=== PATIENT | male | born 1970 | race Caucasian/White ===

== ENCOUNTER 2019-08-03 16:17 | Emergency (ER) | payer BC ==
[2019-08-03] MEDS ORDERED: Propofol 200 MG/20 ML SDV IV ONE (16:18)
[2019-08-03] MEDS ORDERED: Sodium Chloride 0.9% 10 ML Syringe FLUSH PRN (16:40)
[2019-08-03] MEDS ORDERED: Sodium Chloride 0.9% 1,000 ML IV SCH (16:45)
--- NOTE | 2019-08-03 17:13 | EDM.PDOC ---
ED HPI GENERAL MEDICAL PROBLEM - General Chief Complaint: Cardiovascular Problem Stated Complaint: FAST HEARTBEAT Time Seen by Provider: 08/03/19 16:45 Source of Information: Reports: Patient History Limitations: Reports: No Limitations - History of Present Illness INITIAL COMMENTS - FREE TEXT/NARRATIVE: 48-year-old male with history of A. fib/flutter which began on 06/30/2019 who presents to the emergency department today as a transfer from the [facility] in [place] secondary to atrial flutter with rapid ventricular response and a rate in the 130s. He was sent here after the clinic provider had discussed the patient's case with the fruit buyer at [facility] in [place] and the fruit buyer had recommended that the patient have synchronized cardioversion. The patient reports that beginning on 07/29/2019 noted swelling in his feet and ankles and this seems to have gotten progressively worse. He has had no chest pain. He has had no shortness of breath. No dizziness or weakness. He presented to the [facility] in [place] today secondary to this feet and ankle swelling and was then noted to have a flutter with the rapid rate and he was sent over here. He should continue use to state that he has no associated symptoms with this. No nausea or vomiting. He has no pain. He rates his pain as a 0/10. He has been eating and drinking normally. He has not had anything to eat or drink for the past 3-4 hours. There are no other associated signs or symptoms. There are no other modifying factors. Onset: Other (Swelling began on 07/29/2019.) Duration: Getting Worse Location: Reports: Lower Extremity, Left, Lower Extremity, Right Quality: Reports: Other (No pain. Distal swelling.) Severity: Moderate Improves with: Reports: None Worsens with: Reports: None Context: Reports: Other Associated Symptoms: Reports: No Other Symptoms Treatments SENIOR COMMUNICATIONS SPECIALIST: Reports: Other (see below) (Nothing) - Related Data Allergies Allergy/AdvReac Type Severity Reaction Status Date / Time No Known Allergies Allergy Verified 09/28/16 09:05 Home Meds: Home Meds Albuterol [Proventil HFA] 2 puff INH Q4H PRN 09/27/16 [History] Albuterol [Ventolin HFA] 2 puff INH Q4H PRN 09/27/16 [History] Ibuprofen 200 mg PO ASDIRECTED PRN 09/27/16 [History] allopurinoL [Zyloprim] 300 mg PO DAILY PRN 09/27/16 [History] Acetaminophen/HYDROcodone [[place] 325-5 MG] 1 - 2 tab PO Q6H PRN #30 tab [Rx] Docusate Sodium [Colace] 100 mg PO BID #20 capsule 09/28/16 [Rx] Past Medical History Cardiovascular History: Reports: Afib Respiratory History: Reports: Asthma Musculoskeletal History: Reports: Gout - Infectious Disease History Infectious Disease History: Reports: Chicken Pox, Measles, Mumps - Past Surgical History Cardiovascular Surgical History: Reports: Other (See Below) (Cardioversion 2) GI Surgical History: Reports: Cholecystectomy, Hernia, Abdominal (2) Social & Family History - Tobacco Use Smoking Status *Q: Unknown Ever Smoked (Nonsmoker) - Caffeine Use Caffeine Use: Reports: Soda Other Caffeine Use: ONE CAN POP A DAY - Alcohol Use Alcohol Use History: Yes Alcohol Use Frequency: Socially (Not heavy drinking.) - Living Situation & Occupation 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[employer].) ED ROS GENERAL - Review of Systems Review Of Systems: See Below Constitutional: Reports: No Symptoms HEENT: Reports: No Symptoms Respiratory: Reports: No Symptoms Cardiovascular: Reports: No Symptoms GI/Abdominal: Reports: No Symptoms : Reports: No Symptoms Musculoskeletal: Reports: Other (Bilateral feet and ankle swelling) Skin: Reports: No Symptoms Neurological: Reports: No Symptoms Hematologic/Lymphatic: Reports: Easy Bleeding (Patient is on Eliquis) Immunologic: Reports: No Symptoms ED EXAM, GENERAL - Physical Exam Exam: See Below Exam Limited By: No Limitations General Appearance: Alert, No Apparent Distress, Obese Eye Exam: Bilateral Eye: EOMI, Normal Inspection, PERRL Ears: Normal External Exam, Hearing Grossly Normal Ear Exam: Bilateral Ear: Auricle Normal Nose: Normal Inspection, Normal Mucosa, No Blood Throat/Mouth: Normal Inspection, Normal Oropharynx, Normal Voice, No Airway Compromise Head: Atraumatic, Normocephalic Neck: Normal Inspection, Supple, Non-Tender, Full Range of Motion Respiratory/Chest: No Respiratory Distress, Lungs Clear, Normal Breath Sounds, No Accessory Muscle Use, Chest Non-Tender Cardiovascular: Normal Peripheral Pulses, No Murmur, Tachycardia, Irregularly Irregular Peripheral Pulses: 2+: Radial (L), Radial (R), Dorsalis Pedis (L), Dorsalis Pedis (R) GI/Abdominal: Normal Bowel Sounds, Soft, Non-Tender, No Mass Back Exam: Normal Inspection Extremities: Normal Inspection, Normal Range of Motion, Non-Tender, Normal Capillary Refill, Pedal Edema Neurological: Alert, Oriented, CN II-XII Intact, Normal Cognition, No Motor/ Sensory Deficits Psychiatric: Normal Affect Skin Exam: Warm, Dry, Intact, Normal Color EKG INTERPRETATION EKG Date: 08/03/19 Time: 16:51 Rhythm: A-Flutter Rate (Beats/Min): 108 [place]: Normal P-Wave: Absent (Flutter wave is present) QRS: Normal ST-T: Other (Nonspecific ST-T changes) QT: Prolonged (QTc) Comparison: NA - No Prior EKG (No EKG from this facility. The EKG from [facility] in [place] also showed A flutter with RVR) EKG Interpretation Comments: EKG performed after synchronized cardioversion, 17:56: Showed atrial fibrillation with a rate of 63. There were nonspecific ST-T changes still present. There was a normal axis. The QT was normal. Course - Vital Signs Last Recorded V/S: Last Vital Signs Temp 36.8 C 08/03/19 16:35 Pulse 130 H 08/03/19 16:35 Resp 18 08/03/19 16:35 BP Pulse Ox 98 08/03/19 16:35 - Orders/Labs/Meds Orders: Active Orders 24 hr Category Date Time Status EKG Documentation Completion [RC] ASDIRECTED Care 08/03/19 16:41 Active NPO [Nothing Per Oral Diet] [DIET] Diet 08/04/19 Dinner Ordered Sodium Chloride 0.9% [Normal Saline] 1,000 ml Med 08/03/19 16:45 Active IV ASDIRECTED Sodium Chloride 0.9% [Saline Flush] Med 08/03/19 16:40 Active 10 ml FLUSH ASDIRECTED PRN Peripheral IV Insertion Adult [OM.PC] Routine Oth 08/03/19 16:40 Ordered EKG 12 Lead [EK] Routine Ther 08/03/19 16:40 Ordered Medication Orders Sodium Chloride (Normal Saline) 1,000 mls @ 0 mls/hr IV ASDIRECTED VIKI Last Infusion: 08/03/19 18:58 Dose: 30 mls/hr Admin: 08/03/19 17:44 Dose: 150 mls/hr Sodium Chloride (Saline Flush) 10 ml FLUSH ASDIRECTED PRN PRN Reason: Keep Vein Open Labs: Laboratory Tests 08/03/19 08/03/19 08/03/19 Range/Units 16:50 16:50 16:50 WBC 9.0 (4.5-12.0) X10-3/uL RBC 5.10 (4.30-5.75) x10(6)uL Hgb 15.5 (13.5-17.8) g/dL Hct 45.3 (30.0-51.3) % MCV 88.8 (80-96) fL MCH 30.4 (27.7-33.6) pg MCHC 34.2 (32.2-35.4) g/dL RDW 12.2 (11.5-15.5) % Plt Count 257 (125-369) X10(3)uL MPV 7.8 (7.4-10.4) fL Neut % (Auto) 68.5 (46-82) % Lymph % (Auto) 19.4 (13-37) % [place] % (Auto) 7.7 (4-12) % Eos % (Auto) 4 (1.0-5.0) % Baso % (Auto) 1 (0-2) % Neut # (Auto) 6.2 (1.6-8.3) # Lymph # (Auto) 1.7 (0.6-5.0) # [place] # (Auto) 0.7 (0.0-1.3) # Eos # (Auto) 0.4 (0.0-0.8) # Baso # (Auto) 0.0 (0.0-0.2) # Sodium 142 (135-145) mmol/L Potassium 3.9 (3.5-5.3) mmol/L Chloride 104 (100-110) mmol/L Carbon Dioxide 30 (21-32) mmol/L BUN 16 (7-18) mg/dL Creatinine 1.0 (0.70-1.30) mg/dL Est Cr Clr Drug Dosing TNP Estimated GFR (MDRD) > 60 (>60) BUN/Creatinine Ratio 16.0 (9-20) Glucose 106 (80-116) mg/dL Calcium 8.8 (8.6-10.2) mg/dL Magnesium 2.0 (1.8-2.5) mg/dL Total Bilirubin 0.8 (0.1-1.3) mg/dL AST 23 (5-25) IU/L ALT 29 (12-36) U/L Alkaline Phosphatase 55 L (56-112) IU/L Total Protein 7.1 (6.0-8.0) g/dL Albumin 3.5 (3.5-5.2) g/dL Globulin 3.6 g/dL Albumin/Globulin Ratio 1.0 Digoxin 0.8 L (<0.2) ng/mL Meds: Medications Generic Name Dose Route Start Last Admin Trade Name Freq PRN Reason Stop Dose Admin Sodium Chloride 1,000 mls @ 0 mls/hr 08/03/19 16:45 08/03/19 18:58 Normal Saline IV 30 mls/hr ASDIRECTED VIKI Infusion KVO Sodium Chloride 10 ml 08/03/19 16:40 Saline Flush FLUSH ASDIRECTED PRN Keep Vein Open - Re-Assessments/Exams Free Text/Narrative Re-Assessment/Exam: 08/03/19 17:38: The patient's labs are reassuringly normal. He remains in atrial flutter with a rate in the 110 to 130s. His blood pressure is currently in the 100-110 systolic range. He is awake, alert and appropriate and otherwise completely asymptomatic. I have discussed synchronized cardioversion with the patient and have obtained verbal and written consent from the patient seen with IV procedural sedation by anesthesia staff and synchronized cardioversion. He has asked that we proceed with the planned procedures. 08/03/19 17:58: The patient tolerated the cardioversion with no apparent complications. Initially he was in a normal sinus rhythm with a rate in the 60 to 70s but he did begin to have frequent PACs and then he converted to atrial fibrillation with a rate in the 60 to 70s. I will continue to observe the patient for a period of time and if he is in atrial fibrillation or he degenerates to a ventricular response, I will discuss patient's case with cardiology. 08/03/19 18:40: I discussed the patient's case with Dr. Dorman, fruit buyer at [facility], and he feels that the best course of action would be for the patient be transferred to [facility] in [place] for kidney close monitoring, repeat attempt at cardioversion tomorrow and electrophysiology fruit buyer consult/evaluation. 08/03/19 18:45: I discussed this with the patient and the patient is in agreement with the plans for transfer to [facility] in [place]. The patient will be transferred via [facility] ambulance. 08/03/19 19:00: I discussed the patient's case with Dr. Carlton, hospitalist at [facility] in [place], and he has agreed to accept the patient in transfer. The patient will be transferred for direct admission as above. Departure - Departure Time of Disposition: 19:20 Disposition: DC/Tfer to Acute Hospital 02 Reason for Transfer *Q: Other (for cardioversion and electrophysiology fruit buyer evaluation/intervention) Condition: Good (Stable) Clinical Impression: Atrial fibrillation and flutter, Peripheral edema Referrals: Baldev Monte MD [Primary Care Provider] - Forms: ED Department Discharge Sepsis Event Note - Focused Exam Vital Signs: Vital Signs Temp Pulse Resp Pulse Ox 08/03/19 16:35 36.8 C 130 H 18 98 Date Exam was Performed: 08/03/19 Time Exam was Performed: 18:58 - My Orders Last 24 Hours: My Active Orders 08/03/19 16:40 Sodium Chloride 0.9% [Saline Flush] 10 ml FLUSH ASDIRECTED PRN Peripheral IV Insertion Adult [OM.PC] Routine EKG 12 Lead [EK] Routine 08/03/19 16:41 EKG Documentation Completion [RC] ASDIRECTED 08/03/19 16:45 Sodium Chloride 0.9% [Normal Saline] 1,000 ml IV ASDIRECTED 08/04/19 Dinner NPO [Nothing Per Oral Diet] [DIET] - Assessment/Plan Last 24 Hours: My Active Orders 08/03/19 16:40 Sodium Chloride 0.9% [Saline Flush] 10 ml FLUSH ASDIRECTED PRN Peripheral IV Insertion Adult [OM.PC] Routine EKG 12 Lead [EK] Routine 08/03/19 16:41 EKG Documentation Completion [RC] ASDIRECTED 08/03/19 16:45 Sodium Chloride 0.9% [Normal Saline] 1,000 ml IV ASDIRECTED 12/24/19 Dinner NPO [Nothing Per Oral Diet] [DIET]
[2019-08-03 19:15] VITALS: BP 119/59; PULSE 62
== END 2019-08-03 19:30 ==
LOC: FB.ED 16:17
DX: I48.91 Unspecified atrial fibrillation (principal); I48.92 Unspecified atrial flutter; J45.909 Unspecified asthma, uncomplicated; R60.0 Localized edema
CPT/HCPCS: 36415; 80053; 80162; 83735; 85025; 92960; 93005; 96360; 96361; 99152; 99153; 99285-25; J2704; J7030